=== PATIENT | male | born 1985 | race Caucasian/White ===

== ENCOUNTER 2023-03-31 20:55 | Emergency (ER) | payer OTHER ==
[2023-03-31 21:11] VITALS: BP 112/73; RESP 16; TEMP 99.7; BMI 21.8
[2023-03-31 22:22] LABS: HEMATOCRIT 43.5 % (35.4-49); HEMOGLOBIN 14.7 G/dL (11.7-16.9); MCH 30.4 pg (25.7-33.7); MCHC 33.9 g/dl (32.0-35.9); MEAN CELL VOLUME 89.6 fl (80-96); MEAN PLT VOLUME 7.2 fl (7.5-11.1); RBC 4.85 10^6/uL (4.00-5.60); RDW 13.4 % (11.9-15.9); WHITE BLOOD COUNT 17.1 10^3/uL (4.0-10.8)
[2023-03-31 22:28] LABS: PLATELET COUNT 256.1 10^3/uL (134-434)
[2023-03-31 22:36] LABS: ALBUMIN 4.7 g/dl (3.4-5.0); BILIRUBIN,TOTAL 0.7 mg/dl (0.2-1); BLOOD UREA NITROGEN 14.4 mg/dl (7-18); CALCIUM 9.5 mg/dl (8.5-10.1); CREATININE 0.9 mg/dl (0.6-1.3); POTASSIUM 4.3 mmol/L (3.5-5.1); SGOT/AST 19.3 U/L (15-37); SGPT/ALT 34.7 U/L (7-52)
[2023-03-31] MEDS ORDERED: CEFTRIAXONE 1,000 MG in DEXTROSE 5%-WATER - 50 ML IVPB ONE (23:08)
[2023-03-31] MEDS ORDERED: cefTRIAXone SODIUM 1 GM VIAL ONE (23:11)
[2023-03-31 23:18] VITALS: PULSE 112
== END 2023-03-31 23:58 | disposition home or self-care (01) ==
LOC: FER 20:55
DX: J18.9 Pneumonia, unspecified organism (principal); R05.9 Cough, unspecified; R50.9 Fever, unspecified; Z20.822 Contact with and (suspected) exposure to COVID-19
CPT/HCPCS: 36415; 71045-TC-FY; 80053; 85027; 87040; 99284-25